=== PATIENT | female | born 1970 | race Caucasian/White ===

== ENCOUNTER 2019-01-13 04:27 | Observation (INO) | payer BC, SELFPAY ==
[~2019-01-13] VITALS: Ht 162.6 cm; Wt 96.0 kg
[2019-01-13 04:46] LABS: BASO # 0.1 x10^3/uL (0.0-0.2); BASO % 1 % (0-3); EOS # 0.1 x10^3/uL (0.0-0.7); EOS % 2 % (0-3); HEMATOCRIT 39.4 % (36.0-47.0); HEMOGLOBIN 13.1 g/dL (12.0-15.5); LYMPH # 1.8 x10^3/uL (1.0-4.8); LYMPH % 21 % (24-48); MEAN CORPUSCULAR HEMOGLOBIN 28 pg (25-35); MEAN CORPUSCULAR HGB CONC 33 g/dL (31-37); MEAN CORPUSCULAR VOLUME 84 fL (79-100); MONO # 0.5 x10^3/uL (0.0-1.1); MONO % 6 % (0-9); NEUT # 6.1 x10^3uL (1.8-7.7); NEUT % 71 % (31-73); PLATELET COUNT 268 x10^3/uL (140-400); RED BLOOD COUNT 4.67 x10^6/uL (3.50-5.40); RED CELL DISTRIBUTION WIDTH 13.8 % (11.5-14.5); WHITE BLOOD COUNT 8.6 x10^3/uL (4.0-11.0)
[2019-01-13 04:57] LABS: CALCIUM 9.2 mg/dL (8.5-10.1); GFR 59.7; POTASSIUM 3.7 mmol/L (3.5-5.1); PROTHROMBIN TIME PATIENT 11.9 SEC (11.7-14.0)
[2019-01-13] MEDS ORDERED: fentaNYL PF VIAL 100 MCG/2 ML VIAL IV ONE (05:00)
[2019-01-13] MEDS ORDERED: ONDANSETRON PF 4 MG/2 ML VIAL. IV ONE (05:00)
--- NOTE | 2019-01-13 05:02 | RAD ---
AP chest. HISTORY: Chest pain AP view was taken of the chest. Patient's taken a poor inspiration. There are no acute infiltrates. Heart is within normal limits in size. There is no effusion. IMPRESSION: 1. Poor inspiration. 2. No acute infiltrates. Electronically signed by: Zhen Demarco MD (01/13/2019 4:59 AM) [facility]
[2019-01-13 05:03] LABS: ALBUMIN 3.5 g/dL (3.4-5.0); ALBUMIN/GLOBULIN RATIO 0.9 (1.0-1.7); TOTAL BILIRUBIN 0.3 mg/dL (0.2-1.0); TOTAL PROTEIN 7.4 g/dL (6.4-8.2)
[2019-01-13] MEDS ORDERED: NITROGLYCERIN SUBLINGUAL 0.4 MG BOTTLE OF 25. SL PRN (05:15)
--- NOTE | 2019-01-13 05:16 | PHYS DOC ---
Past Medical History Past Medical History: Cancer Past Surgical History: Hysterectomy Adult General Chief Complaint Chief Complaint: CHEST PAIN HPI HPI Patient is a 48 year old female presenting with brought in by eminence chest pain fairly sudden onset pressure raise to left shoulder social with left arm tingling and some numbness. Pain was severe advised to water to her knee she tells me she was working at [employer], she had just been walking across the floor s he had been moving something she denies any previous medical history medical history at this time she doesn't have a primary care doctor she does have a family history of coronary artery disease. She is not a smoker. Review of Systems Review of Systems Constitutional: Denies fever or chills []she did get sweaty with the pain Eyes: Denies change in visual acuity, redness, or eye pain [] HENT: Denies nasal congestion or sore throat [] Respiratory: Mild shortness of breath Cardiovascular: No additional information not addressed in HPI [] GI: Denies abdominal pain, does have nausea : Denies dysuria or hematuria [] Musculoskeletal: Denies back pain or joint pain [] Integument: Denies rash or skin lesions [] Neurologic: Denies headache, focal weakness or sensory changes [] Endocrine: Denies polyuria or polydipsia [] All other systems were reviewed and found to be within normal limits, except as documented in this note. Current Medications Current Medications Current Medications Medications (Trade) Dose Ordered Sig/David Start Time Stop Time Status Last Admin Dose Admin Fentanyl Citrate (Fentanyl 2ml Vial) 50 mcg 1X ONCE 01/13/19 05:00 01/13/19 05:01 DC 01/13/19 04:53 50 MCG Nitroglycerin (Nitrostat) 0.4 mg PRN Q5MIN PRN 01/13/19 05:15 01/14/19 05:14 UNV Ondansetron HCl (Zofran) 4 mg 1X ONCE 01/13/19 05:00 01/13/19 05:01 DC 01/13/19 04:53 4 MG Allergies Allergies Allergies Coded Allergies Type Severity Reaction Last Updated Verified Penicillins Allergy Unknown 01/13/19 Yes Physical Exam Physical Exam Constitutional: Well developed, well nourished, no acute distress, non-toxic appearance. [] HENT: Normocephalic, atraumatic, bilateral external ears normal, oropharynx moist, no oral exudates, nose normal. [] Eyes: PERRLA, EOMI, conjunctiva normal, no discharge. [] Neck: Normal range of motion, no tenderness, supple, no stridor. [] Cardiovascular:Heart rate regular rhythm, no murmur [] Lungs & Thorax: Bilateral breath sounds clear to auscultation [] Abdomen: Bowel sounds normal, soft, no tenderness, no masses, no pulsatile masses. [] Skin: Warm, dry, no erythema, no rash. [] Back: No tenderness, no CVA tenderness. [] Extremities: No tenderness, no cyanosis, no clubbing, ROM intact, no edema. [] Neurologic: Alert and oriented X 3, normal motor function, normal sensory funct ion, no focal deficits noted. [] Psychologic: Affect normal, judgement normal, mood normal. [] Current Patient Data Vital Signs Vital Signs Date Time Temp Pulse Resp B/P (MAP) Pulse Ox O2 Delivery O2 Flow Rate FiO2 01/13/19 04:53 20 97 01/13/19 04:36 97.9 92 130/75 (93) Room Air 97.9 Lab Values Laboratory Tests Test 01/13/19 04:35 White Blood Count 8.6 x10^3/uL (4.0-11.0) Red Blood Count 4.67 x10^6/uL (3.50-5.40) Hemoglobin 13.1 g/dL (12.0-15.5) Hematocrit 39.4 % (36.0-47.0) Mean Corpuscular Volume 84 fL (79-100) Mean Corpuscular Hemoglobin 28 pg (25-35) Mean Corpuscular Hemoglobin Concent 33 g/dL (31-37) Red Cell Distribution Width 13.8 % (11.5-14.5) Platelet Count 268 x10^3/uL (140-400) Neutrophils (%) (Auto) 71 % (31-73) Lymphocytes (%) (Auto) 21 % (24-48) L Monocytes (%) (Auto) 6 % (0-9) Eosinophils (%) (Auto) 2 % (0-3) Basophils (%) (Auto) 1 % (0-3) Neutrophils # (Auto) 6.1 x10^3uL (1.8-7.7) Lymphocytes # (Auto) 1.8 x10^3/uL (1.0-4.8) Monocytes # (Auto) 0.5 x10^3/uL (0.0-1.1) Eosinophils # (Auto) 0.1 x10^3/uL (0.0-0.7) Basophils # (Auto) 0.1 x10^3/uL (0.0-0.2) Prothrombin Time 11.9 SEC (11.7-14.0) Prothrombin Time INR 0.9 (0.8-1.1) Sodium Level 139 mmol/L (136-145) Potassium Level 3.7 mmol/L (3.5-5.1) Chloride Level 104 mmol/L (98-107) Carbon Dioxide Level 24 mmol/L (21-32) Anion Gap 11 (6-14) Blood Urea Nitrogen 19 mg/dL (7-20) Creatinine 1.0 mg/dL (0.6-1.0) Estimated GFR (Cockcroft-Gault) 59.7 BUN/Creatinine Ratio 19 (6-20) Glucose Level 116 mg/dL (70-99) H Calcium Level 9.2 mg/dL (8.5-10.1) Total Bilirubin 0.3 mg/dL (0.2-1.0) Aspartate Amino Transferase (AST) 17 U/L (15-37) Alanine Aminotransferase (ALT) 23 U/L (14-59) Alkaline Phosphatase 101 U/L (46-116) Troponin I Quantitative < 0.017 ng/mL (0.000-0.055) Total Protein 7.4 g/dL (6.4-8.2) Albumin 3.5 g/dL (3.4-5.0) Albumin/Globulin Ratio 0.9 (1.0-1.7) L Laboratory Tests 01/13/19 04:35 Laboratory Tests 01/13/19 04:35 EKG EKG Sinus rhythm rate 87 T wave inversion V1 and V2 no STEMI interpreted by me time of encounter I reviewed the EKG from the paramedics it did show some T-wave inversions V2 and V3 as well as look concerning somewhat for ischemia. No old EKG for comparison[] Radiology/Procedures Radiology/Procedures [] Impressions: Chest x-ray negative Course & Med Decision Making Course & Med Decision Making Pertinent Labs and Imaging studies reviewed. (See chart for details) []Heart score h 2 e 1 a 1 r 1 t 0 will admit, has twi with no old ekg for comparison. At this point time CT chest is pending to rule out dissection overall low suspicion but given the sudden onset thought we should do that. Patient will be admitted to the service of Dr. Kc. Her pain is improving in the emergency room after nitroglycerin Next as well as fentanyl in the ER aspirin was also given. Dragon Disclaimer Dragon Disclaimer This electronic medical record was generated, in whole or in part, using a voice recognition dictation system. Departure Departure Impression: Primary Impression: Chest pain Disposition: ADMITTED INPATIENT Admitting Physician: Ryan Peoples Condition: STABLE Referrals: NO PCP (PCP) ANA DC MD January 13, 2019 05:16
[2019-01-13] MEDS ORDERED: CONTRAST GIVEN. MC PRN (05:30)
[2019-01-13] MEDS ORDERED: IOHEXOL 350 MG/ML 100 ML VIAL. IV ONE (05:30)
--- NOTE | 2019-01-13 06:08 | EKG ---
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
--- NOTE | 2019-01-13 06:24 | RAD ---
CT arteriogram of the chest, CT arteriogram of the abdomen and pelvis. HISTORY: Chest pain left arm numbness, evaluate for dissection CT arteriogram of the chest was done using 90 mL Omnipaque 350 contrast. Sagittal and coronal MIP images were reconstructed. The lungs are free of infiltrates. There is no effusion. Thoracic aorta is normal. There is no aneurysm or dissection. There is no central pulmonary embolus, the contrast in the pulmonary arteries is not optimal. IMPRESSION: 1. No aortic aneurysm or dissection in the thoracic aorta. 2. No infiltrates noted. End impression CT arteriogram of the abdomen and pelvis CT arteriogram of the abdomen pelvis was done in conjunction with CT arteriogram of the chest. Sagittal and coronal MIP images were reconstructed. Liver is normal in appearance. There is no calcified gallstone. Spleen and adrenal glands are normal. Pancreas is normal. There is no mass or hydronephrosis in the kidneys. There are peripelvic renal cysts or changes from UPJ obstructions.. There are calculi at the upper pole of the right kidney. Bowel pattern is normal. Appendix is normal. There is no adenopathy. Arteriogram images show mild to moderate narrowing of the celiac artery probably related to the diaphragm. Superior mesenteric artery is widely patent. Renal arteries are patent. There is no significant atherosclerotic change in the abdominal aorta. There is no aneurysm or dissection. Iliac arteries are unremarkable. There is bulging of the disc and facet arthritis at L4-5. IMPRESSION: 1. 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 2. Calculi upper pole right kidney. 3. Normal abdominal aorta without aneurysm or dissection. 4. 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 5. No abdominal or pelvic mass or other acute finding. PQRS Compliance Statement: One or more of the following individualized dose reduction techniques were utilized for this examination: 1. Automated exposure control 2. Adjustment of the mA and/or kV according to patient size 3. Use of iterative reconstruction technique Electronically signed by: Zhen Demarco MD (01/13/2019 6:21 AM) [facility]
[2019-01-13 06:45] VITALS: BP 140/71
[2019-01-13 07:00] VITALS: BP 142/80
[2019-01-13 08:00] VITALS: BP 128/76
[2019-01-13 08:48] LABS: CHOLESTEROL/HDL RATIO 3.8
[2019-01-13 09:00] VITALS: BP 122/74
[2019-01-13 10:00] VITALS: BP 97/78
--- NOTE | 2019-01-13 10:14 | CARD ---
MR#: [id number] Date of Study: 01/13/2019 Ordering Physician: MAG CASTELLANOS, Referring Physician: GLORIA TEIXEIRA, Tech: Apoorva Orellana APPROVED REPORT EXAM: Two-dimensional and M-mode echocardiogram with Doppler and color Doppler. Other Information Quality : GoodHR: 62bpm INDICATION Chest Pain 2D DIMENSIONS RVDd3.0 (2.9-3.5cm)Left Atrium(2D)3.6 (1.6-4.0cm) IVSd1.1 (0.7-1.1cm)Aortic Root(2D)3.2 (2.0-3.7cm) LVDd4.5 (3.9-5.9cm)LVOT Diameter2.2 (1.8-2.4cm) PWd0.9 (0.7-1.1cm)LVDs3.5 (2.5-4.0cm) FS (%) 22.8 %SV42.8 ml LVEF(%)46.0 (>50%) Aortic Valve AoV Peak Min.124.4cm/sAoV VTI28.3cm AO Peak GR.6.2mmHgLVOT VTI 18.17cm AO Mean GR.4mmHg Mitral Valve MV E Hyzfzsqd92.5cm/sMV DECEL [id number] MV A Gxybwkwv30.7cm/sE/A Ratio1.2 TDI Lateral E' P. V9.65cm/sMedial E' P. V9.07cm/s E/Lateral E'9.9E/Medial E'10.5 Tricuspid Valve TR P. Gdfkhgkl108kd/sRAP GQWWHWWY0nkKw TR Peak Gr.56qaUhXBFQ98xaPp Pulmonary Vein S1 Nduwgolq10.9cm/sS2 Dyptcbww32.49cm/s D2 Taefplrh84.5cm/sPVa cescdyjn458buxi LEFT VENTRICLE The left ventricle is normal size. There is normal left ventricular wall thickness. The left ventricu lar systolic function is normal. The Ejection Fraction is 55%. There is normal LV segmental wall sailaja on. Transmitral Doppler flow pattern is Grade II-pseudonormal filling dynamics. RIGHT VENTRICLE The right ventricle is normal size. There is normal right ventricular wall thickness. The right ventr icular systolic function is normal. ATRIA The left atrium is borderline dilated. The right atrium size is normal. The interatrial septum is int act with no evidence for an atrial septal defect or patent foramen ovale as noted on 2-D or Doppler i maging. AORTIC VALVE The aortic valve is normal in structure and function. Doppler and Color Flow revealed no significant aortic regurgitation. There is no significant aortic valvular stenosis. MITRAL VALVE The mitral valve is normal in structure and function. There is no evidence of mitral valve prolapse. There is no mitral valve stenosis. Doppler and Color Flow revealed no mitral valve regurgitation note d. TRICUSPID VALVE The tricuspid valve is normal in structure and function. Doppler and Color Flow revealed trace tricus pid regurgitation with an estimated PAP of 24 mmHg. There is no tricuspid valve stenosis. PULMONIC VALVE The pulmonary valve is normal in structure and function. Doppler and Color Flow revealed no pulmonic valvular regurgitation. GREAT VESSELS The aortic root is normal in size. The IVC is normal in size and collapses >50% with inspiration. PERICARDIAL EFFUSION There is no evidence of significant pericardial effusion. Critical Notification Critical Value: No <Conclusion> The left ventricular systolic function is normal. The Ejection Fraction is 55%. There is normal LV segmental wall motion. Trace tricuspid regurgitation with an estimated PAP of 24 mmHg. There is no evidence of significant pericardial effusion. Signed by : Gabo Rodriguez, Electronically Approved : 01/13/2019 10:13:44
--- NOTE | 2019-01-13 12:13 | PDOC2 ---
ROLANDO MCGHEE MED SPEC 01/13/19 1213: CARDIAC CONSULT DATE OF CONSULT Date of Consult DATE: 01/13/19 TIME: 12:11 REASON FOR CONSULT Reason for Consult: Chest pain REFERRING PHYSICIAN Referring Physician: Dr. Tinoco SOURCE Source: Chart review, Patient HISTORY OF PRESENT ILLNESS HISTORY OF PRESENT ILLNESS This is a 48 yo female who presented secondary to chest pain. Patient reports she was walking in the hallway at work at [employer] when she began having pain in her left chest. Describes as tightness. Associated with left arm tingling, shortness of breath, and diaphoresis. No dizziness, palpitations, or nausea/vomiting. No worsening factors. Check blood pressure and systolic was near 190. No previous known history of hypertension, but cannot recall the last time she had her blood pressure checked. Pain resolved following ASA and nitro. No further CP overnight. No recent illness/fevers. Denies any recent LE edema, orthopnea, PND, or WITT. PAST MEDICAL HISTORY Cardiovascular: No pertinent hx Pulmonary: No pertinent hx CENTRAL NERVOUS SYSTEM: Other (no pertinent hx) GI: No pertinent hx Heme/Onc: Cancer (uterine ) Hepatobiliary: No pertinent hx Psych: No pertinent hx Rheumatologic: No pertinent hx Infectious disease: No pertinent hx ENT: No pertinent hx Renal/: No pertinent hx Endocrine: No pertinent hx Dermatology: No pertinent hx PAST SURGICAL HISTORY Past Surgical History: Hysterectomy FAMILY HISTORY Family History: Hypertension SOCIAL HISTORY Smoke: No ALCOHOL: none Drugs: None Lives: with Family CURRENT MEDICATIONS CURRENT MEDICATIONS Current Medications Medications (Trade) Dose Ordered Sig/David Route PRN Reason Start Time Stop Time Status Last Admin Dose Admin Fentanyl Citrate (Fentanyl 2ml Vial) 50 mcg 1X ONCE IV 01/13/19 05:00 01/13/19 05:01 DC 01/13/19 04:53 Ondansetron HCl (Zofran) 4 mg 1X ONCE IV 01/13/19 05:00 01/13/19 05:01 DC 01/13/19 04:53 Iohexol (Omnipaque 350 Mg/ml) 90 ml 1X ONCE IV 01/13/19 05:30 01/13/19 05:31 DC 01/13/19 05:49 ALLERGIES ALLERGIES: Coded Allergies: Penicillins (Verified Allergy, Intermediate, 01/13/19) ROS Review of System 14 point ROS conducted with pertinent positives noted above in HPI. PHYSICAL EXAM General: Alert, Oriented X3, Cooperative, No acute distress HEENT: Atraumatic, Mucous membr. moist/pink Lungs: Clear to auscultation, Normal air movement Heart: Regular rate, Normal S1, Normal S2, No murmurs Abdomen: Soft, No tenderness Extremities: No edema, Normal pulses Neuro: Normal speech, Sensation intact Psych/Mental Status: Mental status NL, Mood NL MUSCULOSKELETAL: No deformity VITALS VITALS Vital Signs Date Time Temp Pulse Resp B/P (MAP) Pulse Ox O2 Delivery O2 Flow Rate FiO2 01/13/19 10:00 73 25 97/78 (84) 97 Room Air 01/13/19 08:00 98.3 98.3 LABS Lab: Laboratory Tests Test 01/13/19 04:35 01/13/19 08:10 01/13/19 11:05 White Blood Count 8.6 x10^3/uL (4.0-11.0) Red Blood Count 4.67 x10^6/uL (3.50-5.40) Hemoglobin 13.1 g/dL (12.0-15.5) Hematocrit 39.4 % (36.0-47.0) Mean Corpuscular Volume 84 fL (79-100) Mean Corpuscular Hemoglobin 28 pg (25-35) Mean Corpuscular Hemoglobin Concent 33 g/dL (31-37) Red Cell Distribution Width 13.8 % (11.5-14.5) Platelet Count 268 x10^3/uL (140-400) Neutrophils (%) (Auto) 71 % (31-73) Lymphocytes (%) (Auto) 21 % (24-48) Monocytes (%) (Auto) 6 % (0-9) Eosinophils (%) (Auto) 2 % (0-3) Basophils (%) (Auto) 1 % (0-3) Neutrophils # (Auto) 6.1 x10^3uL (1.8-7.7) Lymphocytes # (Auto) 1.8 x10^3/uL (1.0-4.8) Monocytes # (Auto) 0.5 x10^3/uL (0.0-1.1) Eosinophils # (Auto) 0.1 x10^3/uL (0.0-0.7) Basophils # (Auto) 0.1 x10^3/uL (0.0-0.2) Prothrombin Time 11.9 SEC (11.7-14.0) Prothromb Time International Ratio 0.9 (0.8-1.1) Sodium Level 139 mmol/L (136-145) Potassium Level 3.7 mmol/L (3.5-5.1) Chloride Level 104 mmol/L (98-107) Carbon Dioxide Level 24 mmol/L (21-32) Anion Gap 11 (6-14) Blood Urea Nitrogen 19 mg/dL (7-20) Creatinine 1.0 mg/dL (0.6-1.0) Estimated GFR (Cockcroft-Gault) 59.7 BUN/Creatinine Ratio 19 (6-20) Glucose Level 116 mg/dL (70-99) Calcium Level 9.2 mg/dL (8.5-10.1) Total Bilirubin 0.3 mg/dL (0.2-1.0) Aspartate Amino Transf (AST/SGOT) 17 U/L (15-37) Alanine Aminotransferase (ALT/SGPT) 23 U/L (14-59) Alkaline Phosphatase 101 U/L (46-116) Troponin I Quantitative < 0.017 ng/mL (0.000-0.055) < 0.017 ng/mL (0.000-0.055) < 0.017 ng/mL (0.000-0.055) TV-Dzf-O-Type Natriuretic Peptide 43 pg/mL (0-124) Total Protein 7.4 g/dL (6.4-8.2) Albumin 3.5 g/dL (3.4-5.0) Albumin/Globulin Ratio 0.9 (1.0-1.7) Triglycerides Level 155 mg/dL (0-150) Cholesterol Level 202 mg/dL (0-200) LDL Cholesterol, Calculated 118 mg/dL (0-100) VLDL Cholesterol, Calculated 31 mg/dL (0-40) Non-HDL Cholesterol Calculated 149 mg/dL (0-129) HDL Cholesterol 53 mg/dL (40-60) Cholesterol/HDL Ratio 3.8 ECHOCARDIOGRAM ECHOCARDIOGRAM <Conclusion> The left ventricular systolic function is normal. The Ejection Fraction is 55%. There is normal LV segmental wall motion. Trace tricuspid regurgitation with an estimated PAP of 24 mmHg. There is no evidence of significant pericardial effusion. DATE: 05/22/19 1013 ASSESSMENT/PLAN ASSESSMENT/PLAN 1. Chest pain; mixed features. Troponin series normal- AMI ruled out. ? related to uncontrolled hypertension. Echo with preserved LV systolic function. No WMA 2. Accelerated hypertension; now better controlled 3. Hyperlipidemia; statin added Recommendations Add ASA Continue statin Lisinopril for BP control Will arrange for outpatient stress test with follow up. MISA SHEA MD 01/13/192058: CARDIAC CONSULT ASSESSMENT/PLAN ASSESSMENT/PLAN Patient seen and examined. Agree with UNIFIED COMMUNICATIONS ENGINEER's assessment and plan. CP with mixed features. DC ruled out 2D Echo showed normal LVF without any WMA Plan ischemic evaluation as outpatient BP better controlled since admission Thank you for your consultation ROLANDO MCGHEE APRN January 13, 2019 12:13 MISA SHEA MD January 13, 2019 20:59
--- NOTE | 2019-01-13 12:48 | RAD ---
ABDOMEN COMPLETE History: Chest pain Comparison: None. Findings: Multiple sonographic images of the abdomen are submitted. Gallbladder is present without intraluminal abnormality, wall thickening, pericholecystic fluid. There is segmental visualization of the inferior vena cava. Proximal abdominal aortic caliber is within normal limits up to 2 cm, otherwise abdominal aorta obscured by bowel gas. Right lobe of the liver measured 16.5 cm longitudinal, hepatic echogenicity considered within normal limits. Right kidney measured 12.4 x 4.7 x 5.3 cm, mild hydronephrosis. Left kidney measured 11.8 x 4.2 x 5.3 cm, mild pelvocaliectasis. Spleen measured up to 11.7 cm. There is normal morphology of the somewhat distended urinary bladder. Common bile duct is within normal limits at 0.3 cm. There is no abnormality of the visualized pancreas. Impression: 1. There is no abnormality of the gallbladder, no biliary duct dilatation. 2. There is mild right hydronephrosis and mild left pelvocaliectasis. Urinary bladder is somewhat distended. Electronically signed by: Yoel Toney MD (01/13/2019 12:45 PM) [facility]
--- NOTE | 2019-01-13 13:14 | SSS ---
ADMIT DATE: 01/13/2019 CHIEF COMPLAINT: Chest pain. HISTORY OF PRESENT ILLNESS: The patient is a pleasant, relatively healthy middle-aged female presented with chest pain. She was at work. She dropped to her knees. She was short of breath. It was left-sided, described as a tightness, rated at 10/10. The workers at [employer] where she was working called 911. She was brought to the ER for evaluation. We did serial enzymes and serial EKGs. They are all negative so far. She is admitted overnight for observation. 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 Cardiology has also been consulted. I think her cardiac workup is negative. We plan to discharge this afternoon if okay with consultants. PAST MEDICAL HISTORY: Benign. ALLERGIES: PENICILLIN. FAMILY HISTORY: Coronary artery disease. SOCIAL HISTORY: She does not drink, smoke or take drugs. She works at [employer]. She is . MEDICATIONS: Reviewed, please refer to the MRAD. REVIEW OF SYSTEMS: GENERAL: No history of weight change, weakness or fevers. SKIN: No bruising, hair changes or rashes. EYES: No blurred, double or loss of vision. NOSE AND THROAT: No history of nosebleeds, hoarseness or sore throat. HEART: No history of palpitations, chest pain or shortness of breath on exertion. LUNGS: Denies cough, hemoptysis, wheezing or shortness of breath. GASTROINTESTINAL: Denies changes in appetite, nausea, vomiting, diarrhea or constipation. GENITOURINARY: No history of frequency, urgency, hesitancy or nocturia. NEUROLOGIC: Denies history of numbness, tingling, tremor or weakness. PSYCHIATRIC: No history of panic, anxiety or depression. ENDOCRINE: No history of heat or cold intolerance, polyuria or polydipsia. EXTREMITIES: Denies muscle weakness, joint pain, pain on walking or stiffness. PHYSICAL EXAMINATION: VITAL SIGNS: Stable. GENERAL: She is alert, cooperative, requesting discharge. HEART: Normal S1, S2. LUNGS: Clear. ABDOMEN: Soft, positive bowel sounds. EXTREMITIES: Trace edema. SKIN: No rash. ENDOCRINE: No thyromegaly. LYMPHATICS: No cervical nodes. HEMATOPOIETIC: No bruising noted. PSYCHIATRIC: She is stable. LABORATORY DATA: Troponins are 0. Hematology is normal. Electrolytes are normal. Cholesterol is high at 202. Ultrasound of the abdomen shows no gallstones. CT of the abdomen shows parapelvic cyst or UPJ obstruction, calculi in the upper pole of the right kidney. No aneurysms. ASSESSMENT AND PLAN: Atypical chest pain. Clinically, this patient seems to be doing great and wants to go home. As previously stated, we did consult Cardiology and Urology. If their workup is negative, we are planning to discharge this afternoon. I discussed the case with [id number] and the nurse. DISPOSITION: Home. ACTIVITY: As tolerated. DIET: Low sodium. MEDICATIONS: I did leave a prescription for Zocor 20 p.o. every day. TOTAL TIME: 33 minutes. CHRISTIE CURIEL DO DR: YOUSUF/stacy JOB#: [id number] / [id number]
[2019-01-13] MEDS ORDERED: SIMV20TA PO (13:28)
[2019-01-13] MEDS ORDERED: LISINOPRIL 5 MG TABLET. PO SCH (13:30)
[2019-01-13] MEDS ORDERED: ASPIRIN ENTERIC COATED 81 MG TABLET.DR. PO SCH (13:30)
[2019-01-13] MEDS ORDERED: LISI-338 PO (13:59)
[2019-01-13] MEDS ORDERED: ASPI-612 PO (14:00)
--- NOTE | 2019-01-13 14:05 | EKG ---
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
--- NOTE | 2019-01-13 14:15 | RAD ---
KUB, 01/13/2019: HISTORY: Check calculus There is contrast material in urinary tract from the CT study of earlier in the day. There is no evidence of ureteral obstruction. The patient's known small calculi in the upper pole of the right kidney cannot be clearly radiographically from residual contrast in the collecting system. The urinary bladder is mildly distended. The abdominal gas pattern is unremarkable. Mild scattered degenerative changes are present in the spine. IMPRESSION: 1. No evidence of renal obstruction. 2. Mild bladder distention. Electronically signed by: Wojciech Pollard MD (01/13/2019 2:12 PM) [facility]
--- NOTE | 2019-01-13 14:29 | PDOC2 ---
SLIMEJAMES Gallo Donn QUOTE CLERK 01/13/19 1429: UROLOGY CONSULT Date of Consult Date of Consult DATE: 01/13/19 TIME: 14:15 Source Source: Chart review History of Present Illness Reason for Visit: This 48 year old female was admitted through the ER for chest pain and is curren tly receiving care for this. A CT ABD/Pelvis was done and it was discovered that she had some kidney stones, so Urology was consulted. This is not the first time she has had kidney stones. She had them 3-4 year ago, but they passed on their own with just some pain medication and hydration. She is not currently having any abd/flank pain or dysuria or burning with urination and she is not the type of person who gets frequent UTI's. Overall she is feeling well currently and she had no clue that she had a kidney stone until they ran the scan. She has never seen a Urologist for anything. Past Medical History Cardiovascular: No pertinent hx Pulmonary: No pertinent hx CENTRAL NERVOUS SYSTEM: Other (no pertinent hx) GI: No pertinent hx Heme/Onc: Cancer (uterine ) Hepatobiliary: No pertinent hx Psych: No pertinent hx Rheumatologic: No pertinent hx Infectious disease: No pertinent hx ENT: No pertinent hx Renal/: No pertinent hx Endocrine: No pertinent hx Dermatology: No pertinent hx Past Surgical History Past Surgical History: Hysterectomy Family History Family History: Hypertension Social History No ALCOHOL: none Drugs: None Lives: with Family Current Medications Current Medications Current Medications Aspirin (Ecotrin) 81 mg DAILYWBKFT PO ; Start 01/13/19 at 13:30 Aspirin (Ecotrin) 81 mg DAILYWBKFT PO ; Start 01/14/19 at 08:00; Status UNV Atorvastatin Calcium (Lipitor) 20 mg QHS PO ; Start 01/13/19 at 21:00 Atorvastatin Calcium (Lipitor) 20 mg QHS PO ; Start 01/13/19 at 21:00; Status UNV Fentanyl Citrate (Fentanyl 2ml Vial) 50 mcg 1X ONCE IV Last administered on 01/13/19at 04:53; Start 01/13/19 at 05:00; Stop 01/13/19 at 05:01; Status DC Info (CONTRAST GIVEN -- Rx MONITORING) 1 each PRN DAILY PRN MC SEE COMMENTS; Start 01/13/19 at 05:30; Stop 01/15/19 at 05:29 Iohexol (Omnipaque 350 Mg/ml) 90 ml 1X ONCE IV Last administered on 01/13/19at 05:49; Start 01/13/19 at 05:30; Stop 01/13/19 at 05:31; Status DC Lisinopril (Prinivil) 5 mg DAILY PO ; Start 01/13/19 at 13:30 Nitroglycerin (Nitrostat) 0.4 mg PRN Q5MIN PRN SL CHEST PAIN; Start 01/13/19 at 05:15; Stop 01/14/19 at 05:14 Ondansetron HCl (Zofran) 4 mg 1X ONCE IV Last administered on 01/13/19at 04:53; Start 01/13/19 at 05:00; Stop 01/13/19 at 05:01; Status DC Allergies Allergies: Coded Allergies: Penicillins (Verified Allergy, Intermediate, 01/13/19) ROS Review Of Systems: CONSTITUTIONAL: No fever or chills EYES: No recent changes SKIN: No rash or itching CARDIOVASCULAR: No chest pain, syncope, palpitations, or edema RESPIRATORY: No SOB or cough GASTROINTESTINAL: No nausea, vomiting or abdominal pain NEUROLOGICAL: No headaches or weakness ENDOCRINE: No cold or heat intolerance GENITOURINARY: No urgency or frequency of urination MUSCULOSKELETAL: No back pain or joint pain LYMPHATICS: No enlarged lymph nodes PSYCHIATRIC: No anxiety or depression Physical Exam Physical Exam: General: Pleasant, no acute distress, well groomed Eyes: conjunctiva anicteric, eyes full range of motion ENT: moist oral mucosa, normal dentition Neck: Trachea midline, no masses Respiratory: unlabored breathing, not using accessory muscles, Back: No CVA pain on testing Abdomen:soft, nontender, nondistended, Skin: no rashes or skin lesions on visualized skin Psych: normal mood, affect. Alert and oriented x 3. Vitals VITALS Vital Signs Date Time Temp Pulse Resp B/P (MAP) Pulse Ox O2 Delivery O2 Flow Rate FiO2 01/13/19 10:00 73 25 97/78 (84) 97 Room Air 01/13/19 08:00 98.3 98.3 Labs Labs Laboratory Tests Test 01/13/19 04:35 01/13/19 08:10 01/13/19 11:05 White Blood Count 8.6 x10^3/uL (4.0-11.0) Red Blood Count 4.67 x10^6/uL (3.50-5.40) Hemoglobin 13.1 g/dL (12.0-15.5) Hematocrit 39.4 % (36.0-47.0) Mean Corpuscular Volume 84 fL (79-100) Mean Corpuscular Hemoglobin 28 pg (25-35) Mean Corpuscular Hemoglobin Concent 33 g/dL (31-37) Red Cell Distribution Width 13.8 % (11.5-14.5) Platelet Count 268 x10^3/uL (140-400) Neutrophils (%) (Auto) 71 % (31-73) Lymphocytes (%) (Auto) 21 % (24-48) Monocytes (%) (Auto) 6 % (0-9) Eosinophils (%) (Auto) 2 % (0-3) Basophils (%) (Auto) 1 % (0-3) Neutrophils # (Auto) 6.1 x10^3uL (1.8-7.7) Lymphocytes # (Auto) 1.8 x10^3/uL (1.0-4.8) Monocytes # (Auto) 0.5 x10^3/uL (0.0-1.1) Eosinophils # (Auto) 0.1 x10^3/uL (0.0-0.7) Basophils # (Auto) 0.1 x10^3/uL (0.0-0.2) Prothrombin Time 11.9 SEC (11.7-14.0) Prothromb Time International Ratio 0.9 (0.8-1.1) Sodium Level 139 mmol/L (136-145) Potassium Level 3.7 mmol/L (3.5-5.1) Chloride Level 104 mmol/L (98-107) Carbon Dioxide Level 24 mmol/L (21-32) Anion Gap 11 (6-14) Blood Urea Nitrogen 19 mg/dL (7-20) Creatinine 1.0 mg/dL (0.6-1.0) Estimated GFR (Cockcroft-Gault) 59.7 BUN/Creatinine Ratio 19 (6-20) Glucose Level 116 mg/dL (70-99) Calcium Level 9.2 mg/dL (8.5-10.1) Total Bilirubin 0.3 mg/dL (0.2-1.0) Aspartate Amino Transf (AST/SGOT) 17 U/L (15-37) Alanine Aminotransferase (ALT/SGPT) 23 U/L (14-59) Alkaline Phosphatase 101 U/L (46-116) Troponin I Quantitative < 0.017 ng/mL (0.000-0.055) < 0.017 ng/mL (0.000-0.055) < 0.017 ng/mL (0.000-0.055) MN-Tar-Z-Type Natriuretic Peptide 43 pg/mL (0-124) Total Protein 7.4 g/dL (6.4-8.2) Albumin 3.5 g/dL (3.4-5.0) Albumin/Globulin Ratio 0.9 (1.0-1.7) Triglycerides Level 155 mg/dL (0-150) Cholesterol Level 202 mg/dL (0-200) LDL Cholesterol, Calculated 118 mg/dL (0-100) VLDL Cholesterol, Calculated 31 mg/dL (0-40) Non-HDL Cholesterol Calculated 149 mg/dL (0-129) HDL Cholesterol 53 mg/dL (40-60) Cholesterol/HDL Ratio 3.8 Laboratory Tests Test 01/13/19 04:35 01/13/19 08:10 01/13/19 11:05 White Blood Count 8.6 x10^3/uL (4.0-11.0) Red Blood Count 4.67 x10^6/uL (3.50-5.40) Hemoglobin 13.1 g/dL (12.0-15.5) Hematocrit 39.4 % (36.0-47.0) Mean Corpuscular Volume 84 fL (79-100) Mean Corpuscular Hemoglobin 28 pg (25-35) Mean Corpuscular Hemoglobin Concent 33 g/dL (31-37) Red Cell Distribution Width 13.8 % (11.5-14.5) Platelet Count 268 x10^3/uL (140-400) Neutrophils (%) (Auto) 71 % (31-73) Lymphocytes (%) (Auto) 21 % (24-48) Monocytes (%) (Auto) 6 % (0-9) Eosinophils (%) (Auto) 2 % (0-3) Basophils (%) (Auto) 1 % (0-3) Neutrophils # (Auto) 6.1 x10^3uL (1.8-7.7) Lymphocytes # (Auto) 1.8 x10^3/uL (1.0-4.8) Monocytes # (Auto) 0.5 x10^3/uL (0.0-1.1) Eosinophils # (Auto) 0.1 x10^3/uL (0.0-0.7) Basophils # (Auto) 0.1 x10^3/uL (0.0-0.2) Prothrombin Time 11.9 SEC (11.7-14.0) Prothromb Time International Ratio 0.9 (0.8-1.1) Sodium Level 139 mmol/L (136-145) Potassium Level 3.7 mmol/L (3.5-5.1) Chloride Level 104 mmol/L (98-107) Carbon Dioxide Level 24 mmol/L (21-32) Anion Gap 11 (6-14) Blood Urea Nitrogen 19 mg/dL (7-20) Creatinine 1.0 mg/dL (0.6-1.0) Estimated GFR (Cockcroft-Gault) 59.7 BUN/Creatinine Ratio 19 (6-20) Glucose Level 116 mg/dL (70-99) Calcium Level 9.2 mg/dL (8.5-10.1) Total Bilirubin 0.3 mg/dL (0.2-1.0) Aspartate Amino Transf (AST/SGOT) 17 U/L (15-37) Alanine Aminotransferase (ALT/SGPT) 23 U/L (14-59) Alkaline Phosphatase 101 U/L (46-116) Troponin I Quantitative < 0.017 ng/mL (0.000-0.055) < 0.017 ng/mL (0.000-0.055) < 0.017 ng/mL (0.000-0.055) FR-Maw-Y-Type Natriuretic Peptide 43 pg/mL (0-124) Total Protein 7.4 g/dL (6.4-8.2) Albumin 3.5 g/dL (3.4-5.0) Albumin/Globulin Ratio 0.9 (1.0-1.7) Triglycerides Level 155 mg/dL (0-150) Cholesterol Level 202 mg/dL (0-200) LDL Cholesterol, Calculated 118 mg/dL (0-100) VLDL Cholesterol, Calculated 31 mg/dL (0-40) Non-HDL Cholesterol Calculated 149 mg/dL (0-129) HDL Cholesterol 53 mg/dL (40-60) Cholesterol/HDL Ratio 3.8 Images Images IMPRESSION: 1. 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 2. Calculi upper pole right kidney. 3. Normal abdominal aorta without aneurysm or dissection. 4. 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 5. No abdominal or pelvic mass or other acute finding. Assessment/Plan Assessment/Plan We will get a KUB to see if stones can be treated with ESWL/Lithotripsy at a later date when her cardiovascular issues are under control. Labs 01/12=Road Monkey 1.0, BUN 19. WBC 8.9 Pt afebrile. Will call patient to arrange for follow up appointment for her. DEAN ISRAEL MD 01/16/19 1631: UROLOGY CONSULT Assessment/Plan Assessment/Plan agree w above. JAMES PALENCIA APRN January 13, 2019 14:29 DEAN ISRAEL MD January 16, 2019 16:31
[2019-01-13 14:30] VITALS: BP 148/86
[2019-01-13] MEDS ORDERED: ATORVASTATIN CALCIUM 20 MG TABLET PO SCH ×2 (21:00)
[2019-01-14] MEDS ORDERED: ASPIRIN ENTERIC COATED 81 MG TABLET.DR. PO SCH (08:00)
== END 2019-01-13 16:30 | disposition home or self-care (01) ==
LOC: ER 04:27 → 1 WEST ICU 06:14
PROVIDERS: ADMIT Family Medicine; ATTEND Family Medicine
DX: R07.89 Other chest pain (principal); R20.2 Paresthesia of skin; Z90.710 Acquired absence of both cervix and uterus; Z82.49 Family history of ischemic heart disease and other diseases of the circulatory system
CPT/HCPCS: 36415; 71045; 71275; 74018; 74174; 76700; 80053; 80061; 83880; 84484; 85025; 85610; 93005; 93306; 96374; 96375; 99284; G0378; J2405; J3010; Q9967; G0379

== ENCOUNTER → 2019-01-26 | Outpatient (CLI) | payer BC ==
[2019-01-13 14:30] VITALS: BP 148/86
[~2019-01-26] MED LIST: ASPI-612 PO; LISI-338 PO; REGADENOSON 0.4 MG/5 ML DISP.SYRIN. IV ONE; SIMV20TA PO
--- NOTE | 2019-01-26 12:35 | RAD ---
MR#: [id number] Date of Study: 01/26/2019 Ordering Physician: MISA SHEA Referring Physician: DEBORAH HANKINS Tech: RT Saji (R) (N) APPROVED REPORT Test Type: Pharmacological Stress Nurse/Tech: Caitlin Holt RN Test Indications: chest pain, dyspnea Cardiac History: HTN Medications: See Electronic Medical Record Medical History: See Electronic Medical Record Resting ECG: SR Resting Heart Rate: 71 bpm Resting Blood Pressure: 124/67mmHg Pretest Chest Pain: None Nurse/Tech Notes Lungs CTA, S1S2 Consent: The procedure was explained to the patient in lay terms. Informed consent was witnessed. Kofi eout was entered into [employer]. History and Stress Test performed by Caitlin Holt RN Pharm. Details Pharmacologic stress testing was performed using 0.4mg per 5ml of regadenoson given intravenously ove r 7-10 seconds. Stress Symptoms chest pressure 8/10 that resolved by end of test POST EXERCISE Reason for Termination: Infusion complete Max HR: 110 bpm Max Blood Pressure: 141/58mmHg Blood Pressure response to exercise: Normal blood pressure response during stress. Heart Rate response to exercise: normal response Chest Pain: Yes. 8/10 Arrhythmia: No. ST Change: No. INTERPRETATION Stress EKG Conclusion: No evidence of stress induced EKG changes. Imaging Protocol IMAGE PROTOCOL: Rest Tc-99m/stress Tc-99m 1 day Rest: Stress: Viability: Radiopharm.Tc99m [id number] Sestamibi Dose10.1mCi 33mCi Duration 15min. 10min. Img Date 01/26/2019 01/26/2019 Inj-Img [id number]. 60min. Rest Admin Site:IV - Left AntecubitalAdministrator:RT Gurjit Lennon)(N) Stress Admin Site: IV - Left AntecubitalAdministrator: ANDI Emanuel STRESS DATA End Diast. Vol.81.0mlAv. Heart Rate87.0bpm End Syst. Vol.13.0mlCO Index BSA0.0L/min Myocardial Eknm205.0gEject. Knoaqfrl15.0% Stress Rates Pk. Fill Rate2.89EDV/secLVtime Pk. Fill 182.89msec Pk. Empty Rate4.19ESV/secLVtime Pk. Uyncg385.23msec 1/3 Pk. Fill1.27EDV/sec Stress Scores Regional WT1.00Summed WT2.00 Regional WM0.00Summed WM3.00 The rest and stress images show normal perfusion, normal contraction and thickening. LV Perf. Quant 17 Seg. SSS0.00 17 Seg. SRS0.00 17 Seg. SDS0.00 Stress Defect Extent (% LAD)0.00Rest Defect Extent (% LAD)0.00Rev. Defect Extent (% LAD)0.00 Stress Defect Extent (% LCX) 0.00Rest Defect Extent (% LCX)0.00Rev. Defect Extent (% LCX)0.00 Stress Defect Extent (% RCA)0.00Rest Defect Extent (% RCA)0.00Rev. Defect Extent (% RCA)0.00 Stress Defect Extent (% BURTON)0.00Rest Defect Extent (% BURTON)0.00Rev. Defect Extent (% BURTON)0.00 Other Information Quality:Average Risk Assessment: Low Risk Conclusion 1. No evidence of EKG changes with stress testing. Patient experienced 8/10 chest pain 2. Normal perfusion at stress/rest. 3. Low risk study. 4. EF > 60%. Signed by : Nick Hill, Electronically Approved : 01/26/2019 12:35:23
== END | disposition home or self-care (01) ==
LOC: NM 10:15
PROVIDERS: ATTEND Internal Medicine Cardiovascular Disease
DX: R07.9 Chest pain, unspecified (principal); R06.00 Dyspnea, unspecified; I10 Essential (primary) hypertension; F17.200 Nicotine dependence, unspecified, uncomplicated; Z88.0 Allergy status to penicillin; Z95.0 Presence of cardiac pacemaker; Z79.01 Long term (current) use of anticoagulants; Z90.710 Acquired absence of both cervix and uterus
CPT/HCPCS: 78452; 93017; A9500; J2785